=== PATIENT | female | born 1995 | race African-American/Black ===

== ENCOUNTER 2019-11-03 11:44 | Emergency (ER) | payer MEDICARE, MEDICAID ==
[~2019-11-03] VITALS: Ht 154.9 cm; Wt 72.6 kg
[2019-11-03] MEDS ORDERED: [UNRECOGNIZED DRUG - OTHER] (11:59)
[2019-11-03 12:42] LABS: URINE BILIRUBIN NEGATIVE (Negative); URINE BLOOD NEGATIVE (Negative); URINE CLARITY CLEAR; URINE COLOR YELLOW; URINE GLUCOSE-RANDOM NEGATIVE (Negative); URINE KETONES NEGATIVE (Negative); URINE LEUKOCYTES-REFLEX TRACE (Negative); URINE NITRITE-REFLEX NEGATIVE (Negative); URINE PROTEIN NEGATIVE (Negative); URINE SPECIFIC GRAVITY 1.025 (1.005-1.030); URINE UROBILINOGEN 0.2 E.U./dl (0.2-1.0)
[2019-11-03 12:57] LABS: CASTS None Seen /LPF (None Seen); CRYSTALS None Seen /LPF (None Seen); MUCUS 0-3 Light strn/LPF (None Seen); SQUAMOUS >10 Many /LPF (0-3); URINE RBC 0-2 Rare /HPF (0-2); URINE WBC-REFLEX 0-5 Rare /HPF (0-5)
[2019-11-03 13:02] LABS: ABSOLUTE BASOPHILS 0.1 thou/uL (0.0-0.2); ABSOLUTE EOSINOPHILS 0.2 thou/uL (0.0-0.7); ABSOLUTE LYMPHOCYTES 1.8 thou/uL (0.8-5.3); ABSOLUTE MONOCYTES 0.3 thou/uL (0.0-1.2); ABSOLUTE NEUTROPHILS 6.3 thou/uL (1.6-8.1); BASOPHILS 0.7 %; EOSINOPHILS 2.7 %; HEMATOCRIT 33.2 % (37.0-47.0); HEMOGLOBIN 11.2 gm/dL (12.0-15.0); LYMPHOCYTES 20.3 %; MCH 30.9 pg (26.0-34.0); MCHC 33.8 g/dL (28.0-37.0); MCV 91.4 fL (80.0-100.0); MONOCYTES 3.8 %; MPV 7.3 fl. (7.2-11.1); NUCLEATED RBCS 0 /100WBC; PLATELET COUNT* 286 thou/uL (150-400); POLYS 72.5 %; RBC 3.64 mil/uL (4.20-5.00); RDW-CV 15.7 % (10.5-14.5); WBC 8.7 thou/uL (4.0-11.0)
[2019-11-03 14:09] LABS: APTT 27.3 Seconds (25.0-31.3); PROTIME 10.2 Seconds (9.20-11.50)
[2019-11-03 15:31] LABS: CREATININE 0.7 mg/dL (0.6-1.3); POTASSIUM 3.9 mmol/L (3.5-5.1)
--- NOTE | 2019-11-03 15:32 | EKG ---
[place] [address] ELECTROCARDIOGRAM REPORT Name: TIEN SERRANO Room: [facility]#: [id number] Admission: 11/03/19 Attend Phys: Discharge: Date of : 89 Report #: [id number] THIS REPORT FOR: //name// [facility] ED Test Date: 2019-11-03 Test Time: 13:06:02 Pat Name: TIEN SERRANO Department: Room: Gender: F [employer] Supervisor: : 1995 Requested By: Leanna Garcia Order Number: [id number] MD: Samuel Valadez Measurements Intervals [place] Rate: 63 P: 50 FL: 156 QRS: 64 QRSD: 101 T: 50 QT: 383 QTc: 393 Interpretive Statements Sinus rhythm RSR' in V1 or V2, right VCD or RVH Baseline wander in lead(s) V1 No previous ECG available for comparison Electronically Signed On 11-03-2019 15:31:58 ENGINE MAINTENANCE MECHANIC by Samuel Valadez [email or web address] <ELECTRONICALLY SIGNED> By: Samuel Valadez MD, [facility] 11/03/19 1531 1306 130 Samuel Valadez MD, FACC /EPI
[2019-11-03 15:36] LABS: TOTAL BILIRUBIN 0.6 mg/dL (<0.1-1.0); TOTAL PROTEIN 6.8 g/dL (6.4-8.2)
[2019-11-03] MEDS ORDERED: VENTOLIN HFA 1818 GM INH (16:42)
[2019-11-03] MEDS ORDERED: KEFLEX500 M1 PO (16:42)
[2019-11-03] MEDS ORDERED: BACTRIM DS TAB1 EACH PO (16:42)
[2019-11-03] MEDS ORDERED: NORCO 5-325 TA1 EAC1 PO (16:48)
[2019-11-03 17:22] VITALS: BP 104/61
== END 2019-11-03 17:22 | disposition home or self-care (01) ==
LOC: M.ERS 11:44
PROVIDERS: Nurse Practitioner Family
DX: L03.111 Cellulitis of right axilla (principal); R06.00 Dyspnea, unspecified; M79.652 Pain in left thigh

== ENCOUNTER 2020-03-23 17:04 | Emergency (ER) | payer MEDICARE, MEDICAID ==
[~2020-03-23] VITALS: Ht 152.4 cm; Wt 68.0 kg
[~2020-03-23 17:04] MED LIST: BACTRIM DS TAB1 EACH PO; KEFLEX500 M1 PO; NORCO 5-325 TA1 EAC1 PO; VENTOLIN HFA 1818 GM INH; [UNRECOGNIZED DRUG - OTHER]
[2020-03-23 17:31] LABS: URINE BILIRUBIN NEGATIVE (Negative); URINE BLOOD TRACE (Negative); URINE CLARITY CLEAR; URINE COLOR YELLOW; URINE GLUCOSE-RANDOM NEGATIVE (Negative); URINE KETONES NEGATIVE (Negative); URINE NITRITE-REFLEX NEGATIVE (Negative); URINE PROTEIN NEGATIVE (Negative); URINE SPECIFIC GRAVITY >= 1.030 (1.005-1.030); URINE UROBILINOGEN 0.2 E.U./dl (0.2-1.0)
[2020-03-23 17:32] LABS: URINE LEUKOCYTES-REFLEX 2+ (Negative)
[2020-03-23 17:49] LABS: BACTERIA-REFLEX 1-9 Few /HPF (None Seen); MUCUS >6 Heavy strn/LPF (None Seen); SQUAMOUS >10 Many /LPF (0-3); URINE RBC 0-2 Rare /HPF (0-2); URINE WBC-REFLEX 6-15 Few /HPF (0-5)
[2020-03-23 17:50] LABS: CASTS None Seen /LPF (None Seen); CRYSTALS None Seen /LPF (None Seen)
[2020-03-23] MEDS ORDERED: FLAGYL500 M1 PO (18:35)
[2020-03-23] MEDS ORDERED: METROGEL-VAGINA70 GM VAG (18:35)
[2020-03-23 18:44] VITALS: BP 112/74
== END 2020-03-23 18:46 | disposition home or self-care (01) ==
LOC: M.ERS 17:04
PROVIDERS: Personal Emergency Response Attendant
DX: N76.0 Acute vaginitis (principal); B96.89 Other specified bacterial agents as the cause of diseases classified elsewhere

== ENCOUNTER 2020-08-31 09:42 | Emergency (ER) | payer MEDICARE, MEDICAID ==
[~2020-08-31] VITALS: Ht 154.9 cm; Wt 70.3 kg
[~2020-08-31 09:42] MED LIST changes: +FLAGYL500 M1 PO; +METROGEL-VAGINA70 GM VAG
[2020-08-31 10:06] LABS: URINE BILIRUBIN NEGATIVE (Negative); URINE BLOOD 3+ (Negative); URINE CLARITY CLEAR; URINE COLOR YELLOW; URINE GLUCOSE-RANDOM NEGATIVE (Negative); URINE KETONES NEGATIVE (Negative); URINE LEUKOCYTES-REFLEX TRACE (Negative); URINE NITRITE-REFLEX NEGATIVE (Negative); URINE PROTEIN 1+ (Negative); URINE SPECIFIC GRAVITY 1.025 (1.005-1.030); URINE UROBILINOGEN 0.2 E.U./dl (0.2-1.0)
[2020-08-31 10:13] LABS: BACTERIA-REFLEX 1-9 Few /HPF (None Seen); CASTS None Seen /LPF (None Seen); CRYSTALS None Seen /LPF (None Seen); MUCUS >6 Heavy strn/LPF (None Seen); SQUAMOUS 0-3 Few /LPF (0-3); URINE RBC >20 Many /HPF (0-2); URINE WBC-REFLEX 0-5 Rare /HPF (0-5)
[2020-08-31] MEDS ORDERED: KEFLEX500 M1 PO (11:21)
[2020-08-31 11:41] VITALS: BP 118/74
== END 2020-08-31 11:42 | disposition home or self-care (01) ==
LOC: M.ERS 09:42
PROVIDERS: Personal Emergency Response Attendant
DX: N39.0 Urinary tract infection, site not specified (principal)

== ENCOUNTER 2020-11-25 18:08 | Emergency (ER) | payer MEDICARE, MEDICAID ==
[~2020-11-25] VITALS: Ht 154.9 cm; Wt 68.0 kg
[2020-11-25 18:20] LABS: URINE BILIRUBIN NEGATIVE (Negative); URINE BLOOD 3+ (Negative); URINE CLARITY CLOUDY; URINE COLOR YELLOW; URINE GLUCOSE-RANDOM NEGATIVE (Negative); URINE KETONES NEGATIVE (Negative); URINE NITRITE-REFLEX NEGATIVE (Negative); URINE PROTEIN 1+ (Negative); URINE SPECIFIC GRAVITY >= 1.030 (1.005-1.030); URINE UROBILINOGEN 0.2 E.U./dl (0.2-1.0)
[2020-11-25 18:23] LABS: URINE LEUKOCYTES-REFLEX 2+ (Negative)
[2020-11-25 18:26] LABS: CASTS None Seen /LPF (None Seen); CRYSTALS None Seen /LPF (None Seen); SQUAMOUS 4-10 Moderate /LPF (0-3); URINE RBC >20 Many /HPF (0-2); URINE WBC-REFLEX >25 Many /HPF (0-5)
[2020-11-25] MEDS ORDERED: BACTRIM DS TAB1 EAC1 PO (18:33)
[2020-11-25 18:41] VITALS: BP 110/75
== END 2020-11-25 18:43 | disposition home or self-care (01) ==
LOC: M.ERS 18:08
PROVIDERS: Physician Assistant
DX: N39.0 Urinary tract infection, site not specified (principal); Z98.890 Other specified postprocedural states

== ENCOUNTER 2021-01-05 03:20 | Emergency (ER) | payer MEDICARE, MEDICAID ==
[~2021-01-05] VITALS: Ht 154.9 cm; Wt 72.6 kg
[~2021-01-05 03:20] MED LIST changes: +BACTRIM DS TAB1 EAC1 PO
[2021-01-05] MEDS ORDERED: MACROBID 100 M100 M1 PO (03:36)
[2021-01-05] MEDS ORDERED: PYRIDIUM200 MG PO (03:36)
[2021-01-05 03:53] LABS: URINE BILIRUBIN NEGATIVE (Negative); URINE BLOOD 3+ (Negative); URINE CLARITY CLOUDY; URINE COLOR YELLOW; URINE GLUCOSE-RANDOM NEGATIVE (Negative); URINE KETONES NEGATIVE (Negative); URINE LEUKOCYTES-REFLEX 1+ (Negative); URINE NITRITE-REFLEX NEGATIVE (Negative); URINE PROTEIN 2+ (Negative); URINE SPECIFIC GRAVITY >= 1.030 (1.005-1.030)
[2021-01-05 04:00] VITALS: BP 121/68
[2021-01-05 04:37] LABS: CASTS None Seen /LPF (None Seen); SQUAMOUS 4-10 Moderate /LPF (0-3)
[2021-01-05 04:38] LABS: URINE RBC 3-10 Few /HPF (0-2); URINE WBC-REFLEX >25 Many /HPF (0-5)
[2021-01-05 04:39] LABS: AMORPHOUS URATES Moderate /LPF (None Seen)
== END 2021-01-05 04:00 | disposition home or self-care (01) ==
LOC: M.ERS 03:20
PROVIDERS: Family Medicine
DX: N39.0 Urinary tract infection, site not specified (principal)

== ENCOUNTER 2021-02-20 16:29 | Emergency (ER) | payer MEDICARE, MEDICAID ==
[~2021-02-20] VITALS: Ht 154.9 cm; Wt 68.0 kg
[~2021-02-20 16:29] MED LIST changes: +MACROBID 100 M100 M1 PO; +PYRIDIUM200 MG PO
[2021-02-20 16:39] VITALS: BP 112/72
[2021-02-20] MEDS ORDERED: DOXYCYCLINE 10100 M2 PO (17:06)
== END 2021-02-20 17:16 | disposition home or self-care (01) ==
LOC: M.ERS 16:29
DX: L73.1 Pseudofolliculitis barbae (principal)

== ENCOUNTER 2021-05-02 15:47 | Emergency (ER) | payer MEDICARE, MEDICAID ==
[~2021-05-02] VITALS: Ht 152.4 cm; Wt 68.0 kg
[~2021-05-02 15:47] MED LIST changes: +DOXYCYCLINE 10100 M2 PO
[2021-05-02 16:05] VITALS: BP 111/72
== END 2021-05-02 16:50 | disposition left against medical advice (07) ==
LOC: M.ERS 15:47
DX: Z53.21 Procedure and treatment not carried out due to patient leaving prior to being seen by health care provider (principal)

== ENCOUNTER 2021-05-21 18:39 | Emergency (ER) | payer MEDICARE, MEDICAID ==
[~2021-05-21] VITALS: Ht 154.9 cm; Wt 68.0 kg
[2021-05-21 19:03] LABS: URINE BILIRUBIN NEGATIVE (Negative); URINE BLOOD 3+ (Negative); URINE CLARITY CLEAR; URINE COLOR YELLOW; URINE GLUCOSE-RANDOM NEGATIVE (Negative); URINE KETONES 1+ (Negative); URINE LEUKOCYTES-REFLEX NEGATIVE (Negative); URINE NITRITE-REFLEX NEGATIVE (Negative); URINE PROTEIN NEGATIVE (Negative); URINE SPECIFIC GRAVITY >= 1.030 (1.005-1.030); URINE UROBILINOGEN 0.2 E.U./dl (0.2-1.0)
[2021-05-21 19:12] LABS: MUCUS >6 Heavy strn/LPF (None Seen); SQUAMOUS >10 Many /LPF (0-3)
[2021-05-21 19:16] LABS: BACTERIA-REFLEX 1-9 Few /HPF (None Seen); CASTS None Seen /LPF (None Seen); CRYSTALS None Seen /LPF (None Seen); URINE RBC 0-2 Rare /HPF (0-2)
[2021-05-21 19:27] LABS: ABSOLUTE EOSINOPHILS 0.1 thou/uL (0.0-0.7); ABSOLUTE LYMPHOCYTES 1.7 thou/uL (0.8-5.3); ABSOLUTE MONOCYTES 0.4 thou/uL (0.0-1.2); ABSOLUTE NEUTROPHILS 4.1 thou/uL (1.6-8.1); BASOPHILS 0.4 %; EOSINOPHILS 1.7 %; HEMATOCRIT 35.3 % (37.0-47.0); HEMOGLOBIN 12.3 gm/dL (12.0-15.0); LYMPHOCYTES 26.9 %; MCH 32.6 pg (26.0-34.0); MCHC 34.8 g/dL (28.0-37.0); MCV 93.6 fL (80.0-100.0); MONOCYTES 5.7 %; MPV 7.8 fl. (7.2-11.1); NUCLEATED RBCS 0 /100WBC; PLATELET COUNT* 208 thou/uL (150-400); POLYS 65.3 %; RBC 3.77 mil/uL (4.20-5.00); RDW-CV 13.3 % (10.5-14.5); WBC 6.2 thou/uL (4.0-11.0)
[2021-05-21 19:32] LABS: CALCIUM 8.8 mg/dL (8.5-10.1); CREATININE 0.7 mg/dL (0.6-1.3); POTASSIUM 4.2 mmol/L (3.5-5.1)
[2021-05-21 19:37] LABS: ALBUMIN 3.9 g/dL (3.4-5.0); TOTAL BILIRUBIN 1.7 mg/dL (<0.1-1.0); TOTAL PROTEIN 7.8 g/dL (6.4-8.2)
[2021-05-21] MEDS ORDERED: MEDROXYPROGESTE10 MG PO (19:47)
[2021-05-21 19:56] VITALS: BP 141/81
== END 2021-05-21 19:56 | disposition home or self-care (01) ==
LOC: M.ERS 18:39
PROVIDERS: Nurse Practitioner Family
DX: N93.9 Abnormal uterine and vaginal bleeding, unspecified (principal)

== ENCOUNTER 2021-08-25 18:16 | Emergency (ER) | payer MEDICARE, MEDICAID ==
[~2021-08-25] VITALS: Ht 152.4 cm; Wt 68.0 kg
[~2021-08-25 18:16] MED LIST changes: +MEDROXYPROGESTE10 MG PO
[2021-08-25 18:44] LABS: URINE CLARITY CLOUDY
[2021-08-25 18:53] LABS: SQUAMOUS 4-10 Moderate /LPF (0-3); URINE BILIRUBIN ND (Negative); URINE BLOOD ND (Negative); URINE COLOR ORANGE; URINE GLUCOSE-RANDOM ND (Negative); URINE KETONES ND (Negative); URINE LEUKOCYTES-REFLEX ND (Negative); URINE NITRITE-REFLEX ND (Negative); URINE PROTEIN ND (Negative); URINE SPECIFIC GRAVITY ND (1.005-1.030); URINE UROBILINOGEN ND E.U./dl (0.2-1.0)
[2021-08-25 18:54] LABS: BACTERIA-REFLEX 1-9 Few /HPF (None Seen); CASTS None Seen /LPF (None Seen); URINE RBC 0-2 Rare /HPF (0-2)
[2021-08-25 18:55] LABS: CRYSTALS None Seen /LPF (None Seen)
[2021-08-25] MEDS ORDERED: MACROBID 100 M100 MG PO (19:01)
[2021-08-25] MEDS ORDERED: PHENAZOPYRIDIN200 M2 PO (19:01)
[2021-08-25 19:08] VITALS: BP 112/58
== END 2021-08-25 19:08 | disposition home or self-care (01) ==
LOC: M.ERS 18:16
PROVIDERS: Physician Assistant
DX: N39.0 Urinary tract infection, site not specified (principal); Z98.890 Other specified postprocedural states